=== PATIENT | female | born 1980 | race Asian ===

== ENCOUNTER 2024-12-15 15:06 | Outpatient (CLI) | payer BC | END 2024-12-15 15:07 | disposition home or self-care (01) | LOC: CSHMAMMO 15:06 | PROVIDERS: ATTEND Family Medicine | DX: Z12.31 Encounter for screening mammogram for malignant neoplasm of breast (principal); Z85.89 Personal history of malignant neoplasm of other organs and systems | CPT/HCPCS: 77063; 77067 ==